=== PATIENT | male | born 1975 | race Two or more races ===

== ENCOUNTER 2025-02-02 12:40 | Outpatient (CLI) | payer BC ==
--- NOTE | 2025-02-02 13:35 | RADIOLOGY REPORT ---
CLINICAL INDICATION: PAIN IN RIGHT SHOULDER COMPARISON: None TECHNIQUE: Multiplanar, multisequence MRI of the right shoulder was performed without contrast. Contrast: None FINDINGS: Glenohumeral joint: There is no fracture or bone marrow edema. Alignment is maintained. There is chondral thinning on both sides of the glenohumeral joint. There are osteophytes in the medial humeral head and superolateral humeral head. Acromioclavicular joint: The acromioclavicular joint is narrowed with capsular hypertrophy. There is a type 2 acromion. Rotator cuff and bursae: There is a full-thickness, full width tear supraspinatus and infraspinatus with retraction to the myotendinous junctions. Severe subscapularis tendinosis. The teres minor tendon is intact. There is no significant muscle atrophy or intramuscular edema. There is trace fluid in the subacromial subdeltoid bursa. Biceps tendon and glenoid labrum: There is tendinosis of the intra-articular long head biceps tendon. No tendon tear. Diffuse labral degeneration and there is a chronic tear of the anterior inferior and anterior superior segments of the glenoid labrum. IMPRESSION: 1. Full-thickness, full width tear of the supraspinatus and infraspinatus tendons with retraction to the myotendinous junctions in the right shoulder. No muscle atrophy. 2. Severe subscapularis tendinosis. 3. Glenohumeral and acromioclavicular joint osteoarthritis. 4. 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
== END 2025-02-02 23:59 | disposition home or self-care (01) ==
LOC: MRI02 12:40
PROVIDERS: ATTEND Pediatrics Sports Medicine
DX: M75.121 Complete rotator cuff tear or rupture of right shoulder, not specified as traumatic (principal); M25.511 Pain in right shoulder; M75.81 Other shoulder lesions, right shoulder
CPT/HCPCS: 73221; J7120